=== PATIENT | male | born 1995 | race Caucasian/White ===

== ENCOUNTER 2022-08-27 11:16 | Emergency (ER) | payer OTHER ==
[~2022-08-27] VITALS: Ht 188 cm; Wt 109.1 kg
[2022-08-27 12:02] VITALS: BP 192/119
[2022-08-27 12:09] LABS: BASO% 0.3 % (0-3); EOS% 1.3 % (0-8); HEMATOCRIT 47.2 % (39.0-50.0); HEMOGLOBIN 16.7 g/dl (14.0-18.0); IMMATURE GRANULOCYTES 0.1 % (0.0-5.0); LYMPH% 20.5 % (15-41); MEAN CELL VOLUME 84.4 fL CALC (80.0-100.0); MEAN CORPUSCULAR HGB 29.9 pG CALC (26.0-32.0); MEAN CORPUSCULAR HGB CONC 35.4 g/dL CAL (32.0-36.0); MONO% 6.2 % (2-13); NEUT# 5.07 thou/uL (1.82-7.42); NEUT% 71.6 % (42-76); RED BLOOD COUNT 5.59 mill/uL (4.70-6.10); RED CELL DISTRI WIDTH 12.9 % (11.5-15.5)
[2022-08-27 12:13] VITALS: BP 179/131
[2022-08-27 12:23] LABS: ALBUMIN 5.2 g/dL (3.2-5.0); ALKALINE PHOSPHATASE 66 u/l (38-126); ANION GAP 17 (6-22 (CALC)); BILIRUBIN, TOTAL 0.6 mg/dL (0.0-1.4); BUN 10 mg/dL (9-20); BUN/CREATININE RATIO 14 (12-20 (CALC)); CARBON DIOXIDE 24 mmol/l (22-30); CHLORIDE 105 mmol/l (95-108); CREATININE 0.7 mg/dL (0.7-1.3); GFR FOR AFR.AMER. > 60 ML/MIN (>=60 (CALC)); GFR OTHER RACES > 60 ML/MIN (>=60 (CALC)); POTASSIUM 4.3 mmol/l (3.5-5.1); SGOT/AST 28 u/l (17-59); SODIUM 141 mmol/l (137-146)
[2022-08-27 12:30] VITALS: BP 184/125
[2022-08-27] MEDS ORDERED: OMNICEF300 M1 PO (14:13)
[2022-08-27 14:22] VITALS: BP 184/125
== END 2022-08-27 15:06 | disposition home or self-care (01) | DRG 605 ==
LOC: ED 11:16
PROVIDERS: Family Medicine
PROC: 0HQ4XZZ Repair Neck Skin, External Approach (ICD-10-PCS; principal; 2022-08-27)
PROC: 0HQ6XZZ Repair Back Skin, External Approach (ICD-10-PCS; 2022-08-27)
DX: S11.91XA Laceration without foreign body of unspecified part of neck, initial encounter (principal); T79.7XXA Traumatic subcutaneous emphysema, initial encounter; S21.211A Laceration without foreign body of right back wall of thorax without penetration into thoracic cavity, initial encounter; W45.8XXA Other foreign body or object entering through skin, initial encounter; I10 Essential (primary) hypertension
CPT/HCPCS: Q9967